=== PATIENT | male | born 1985 | race Two or more races ===

== ENCOUNTER 2019-07-21 04:59 | Emergency (ER) | payer SELFPAY ==
[2019-07-21 05:13] VITALS: BP 92/73; PULSE 104; TEMP 98.3; BMI 32.1
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
[2019-07-21] MEDS ORDERED: DIPHTH,PERTUSS(ACELL),TET 0.5 ML DISP.SYRIN IM ONE ×2 (07:07→07:25)
== END 2019-07-21 07:34 | disposition home or self-care (01) ==
LOC: FER 04:59
PROC: 0HQLXZZ Repair Left Lower Leg Skin, External Approach (ICD-10-PCS; principal; 2019-07-21)
PROC: 0HQ7XZZ Repair Abdomen Skin, External Approach (ICD-10-PCS; 2019-07-21)
PROC: 3E0234Z Introduction of Serum, Toxoid and Vaccine into Muscle, Percutaneous Approach (ICD-10-PCS; 2019-07-21)
DX: S31.119A Laceration without foreign body of abdominal wall, unspecified quadrant without penetration into peritoneal cavity, initial encounter (principal); S81.012A Laceration without foreign body, left knee, initial encounter; X99.1XXA Assault by knife, initial encounter; Y93.89 Activity, other specified; Y92.9 Unspecified place or not applicable; J45.990 Exercise induced bronchospasm; F17.210 Nicotine dependence, cigarettes, uncomplicated
CPT/HCPCS: 74176-TC; 90715; 99281-25